=== PATIENT | male | born 1960 | race Native Hawaiian/Other Pacific Islander ===

== ENCOUNTER → 2020-06-11 18:58 | Outpatient (CLI) | payer OTHER, SELFPAY ==
--- NOTE | 2020-06-11 19:00 | DI.MRI.S_ITS ---
PROCEDURE: MR LUMBAR SPINE WO/W CON INDICATIONS: MALIGNANT NEOPLASM, DESCENDING COLON. TECHNIQUE: Noncontrast sagittal T1 spin echo and T2 fast spin echo, sagittal STIR, axial T1 and T2 fast spin echo through the lumbar spine. In cases with scoliosis, additional coronal T2 fast spin echo may be performed. After the administration of contrast, sagittal and axial T1 spin echo with fat saturation through the lumbar spine. COMPARISON: [place], [place], MD PET CT FUSION SKULL 2 THIGH, 01/10/2019, 13:42. FINDINGS: Image quality: Excellent. Alignment and curvature: There is normal bony alignment. Marrow: Focus of increased T2 signal, decreased T1 signal and heterogeneous post-contrast enhancement noted in the anterior aspect of the L2 vertebral body most compatible with osseous metastatic lesion. No additional osseous metastatic lesions identified. No acute vertebral body compression fractures. No suspicious marrow enhancement. Spinal cord: Conus medullaris terminates at the L1 level. Visualized spinal cord demonstrates normal signal, without suspicious enhancement. Paraspinous soft tissues: No paravertebral masses or abnormal enhancement. T12-L1: Normal appearance. L1-L2: Normal appearance. L2-L3: Normal appearance. L3-L4: Loss of disc signal. Mild, diffuse disc bulge. No central stenosis. No neural foraminal narrowing. No neural compression. L4-L5: Loss of disc signal. Mild, diffuse disc bulge. Mild bilateral facet hypertrophy. Mild narrowing of the central canal. Mild bilateral neural foraminal narrowing. No neural compression. L5-S1: Loss of disc signal. Mild bilateral facet hypertrophy. No central stenosis. No neural foraminal narrowing. No neural compression. IMPRESSION: 1. Probable metastatic lesion involving the L2 vertebral body. 2. Mild multilevel degenerative disc disease. 3. Mild multilevel facet arthropathy. 4. No severe central canal narrowing. 5. No severe neural foraminal narrowing. 6. No neural compression. Dictated by: Narda Ta MD, PhD on 06/12/2020 at 10:45 Approved by: Narda Ta MD, PhD on 06/12/2020 at 10:48
== END ==
PROVIDERS: Referring Provider Internal Medicine Hematology & Oncology; Visit Provider Internal Medicine Hematology & Oncology
DX: C18.6 Malignant neoplasm of descending colon (principal); M47.816 Spondylosis without myelopathy or radiculopathy, lumbar region; M47.817 Spondylosis without myelopathy or radiculopathy, lumbosacral region; M48.061 Spinal stenosis, lumbar region without neurogenic claudication; M89.9 Disorder of bone, unspecified
CPT/HCPCS: 72158; A9579